=== PATIENT | male | born 1965 | race American Indian/Alaskan Native ===

== ENCOUNTER 2020-09-07 07:20 | Emergency (ER) | payer SELFPAY ==
[2020-09-07] MEDS ORDERED: ASPIRIN 325 MG TAB PO ONE (07:28)
[2020-09-07 08:09] LABS: Bilirubin,Urine NEG (Negative); Blood,Urine NEG (Negative); Color,Urine Yellow (Yellow); Mucus,Urine FEW /HPF; Protein,Urine <15 mg/dL mg/dL (Negative)
--- NOTE | 2020-09-07 08:11 | XRay Report ---
CHEST 1 VIEW INDICATION: Chest Pain. COMPARISON: None FINDINGS: SUPPORT DEVICES: None. HEART: Within normal limits. LUNGS/PLEURA: No acute air space or interstitial disease. ADDITIONAL FINDINGS: None. IMPRESSION: 1. No acute findings. Signer Name: Ziyad Vences MD Signed: 09/07/2020 8:06 AM Workstation Name: [id number]
[2020-09-07 08:15] LABS: WBC,Urine < 1.0 /HPF (0.0-6.0)
[2020-09-07 08:18] LABS: Amphetamine Screen,Urine Negative; Benzodiazepines Screen,Urine Negative; Cannabinoid Screen,Urine Negative; Cocaine Screen,Urine Negative; Methadone Screen,Urine Negative; Opiate Screen,Urine Negative
--- NOTE | 2020-09-07 08:27 | Emergency Department Report ---
ED Chest Pain HPI - General Chief Complaint: Chest Pain Stated Complaint: SHORTNESS OF BREATH/ CP Time Seen by Provider: 09/07/20 08:26 Source: patient Mode of arrival: Ambulatory Limitations: No Limitations - History of Present Illness Initial Comments: 55-year-old male complains of an area of soreness in the right upper outer quadrant of his anterior chest. He states that it has subsided. Initially he had some difficulty in breathing which he relates was secondary to augmentation of the soreness with a deep inspiration. I do not think he truly had pleuritic pain. There was no cough and no ongoing shortness of breath. Patient states that he has been concerned about blood clots for 3 to 4 weeks. He states that he had some left calf pain and had a telemedicine consult at that time. He was instructed to go to the emergency department to have it checked re: the possibility of DVT. However, he states he was "too hard headed" and never had it done. Today with the chest soreness again he was concerned about the possibility of a blood clot. Patient states that the pain is augmented by movement of his right shoulder. It has essentially resolved by the time of my encounter. He has no ongoing calf pain. He has had no actual swelling of the calf. Patient denies a history of VTE either of himself or his family. He has a history of hypertension but no known coronary artery disease. MD Complaint: chest pain -: Gradual, minutes(s) Onset: during rest Pain Location: right chest Pain Radiation: none Severity: moderate Quality: aching, other (Aching) Consistency: now resolved Improves With: nothing Worsens With: nothing Context: other re: dyspnea. denies: vomting, diaphoresis Other Symptoms: denies: cough, fever, syncope Treatments Prior to Arrival: none Aspirin use within the Past 7 Days: (0) No - Related Data Home Medications Medication Instructions Recorded Confirmed Last Taken Lipitor 40 mg PO HS 09/07/20 09/07/20 Unknown Losartan 50 mg PO DAILY 09/07/20 09/07/20 Unknown amLODIPine 10 mg PO DAILY 09/07/20 09/07/20 Unknown Allergies Allergy/AdvReac Type Severity Reaction Status Date / Time No Known Allergies Allergy Unverified 09/07/20 07:22 Heart Score - HEART Score History: Slightly suspicious EKG: Normal Age: 45-65 Risk factors: 1-2 risk factors Troponin: < normal limit HEART Score: 2 - Critical Actions Critical Actions: 0-3 pts:0.9-1.7%risk of adverse cardiac event.Candidate for discharge ED Review of Systems ROS: Stated complaint: SHORTNESS OF BREATH/ CP Other details as noted in HPI Constitutional: denies: chills, fever Eyes: denies: eye pain, eye discharge, vision change ENT: denies: ear pain, throat pain Respiratory: shortness of breath (Transient). denies: cough, wheezing Cardiovascular: chest pain. denies: palpitations Endocrine: no symptoms reported Gastrointestinal: denies: abdominal pain, nausea, diarrhea Genitourinary: denies: urgency, dysuria Musculoskeletal: denies: back pain, joint swelling, arthralgia Skin: as per HPI. denies: rash, lesions Neurological: denies: headache, weakness, paresthesias Psychiatric: denies: anxiety, depression Hematological/Lymphatic: denies: easy bleeding, easy bruising ED Past Medical Hx - Past Medical History Hx Hypertension: Yes - Surgical History Additional Surgical History: LEG - Family History Family history: other (Negative for VTE) - Social History Smoking Status: Never Smoker Substance Use Type: None - Medications Home Medications: Home Medications Medication Instructions Recorded Confirmed Last Taken Type Lipitor 40 mg PO HS 09/07/20 09/07/20 Unknown History Losartan 50 mg PO DAILY 09/07/20 09/07/20 Unknown History amLODIPine 10 mg PO DAILY 09/07/20 09/07/20 Unknown History ED Physical Exam - General Limitations: No Limitations General appearance: alert, in no apparent distress - Head Head exam: Present: atraumatic, normocephalic - Eye Eye exam: Present: normal appearance. Absent: scleral icterus - ENT ENT exam: Present: mucous membranes moist - Neck Neck exam: Present: normal inspection - Respiratory Respiratory exam: Present: normal lung sounds bilaterally, chest wall tenderness (Symptoms reproduced by pressure in the related area). Absent: respiratory distress - Cardiovascular Cardiovascular Exam: Present: regular rate, normal rhythm. Absent: systolic murmur, diastolic murmur, rubs, gallop - GI/Abdominal GI/Abdominal exam: Present: soft, normal bowel sounds. Absent: distended, tenderness, guarding, rebound - Rectal Rectal exam: Present: deferred - Extremities Exam Extremities exam: Present: normal inspection - Back Exam Back exam: Present: normal inspection - Neurological Exam Neurological exam: Present: alert, oriented X3, CN II-XII intact. Absent: motor sensory deficit - Psychiatric Psychiatric exam: Present: normal affect, normal mood - Skin Skin exam: Present: warm, dry, intact, normal color. Absent: rash ED Course Vital Signs 09/07/20 09/07/20 07:22 11:01 Temperature 98.1 F Pulse Rate 68 64 Respiratory 20 16 Rate Blood Pressure 142/91 Blood Pressure 137/86 [Left] O2 Sat by Pulse 97 95 Oximetry - Reevaluation(s) Reevaluation #1: Patient's cardiac biomarkers are negative. His EKG shows no evidence of acute ischemia. He has poor R wave progression. His D-dimer is less than 135. He has been asymptomatic during his emergency department stay. Thus, I think the patient is appropriate for outpatient follow-up and further evaluation. He will be referred to primary care and a subassembler. 09/07/20 11:16 YU score - Yu Score Age > 65: (0) No Aspirin use within the Past 7 Days: (0) No 3 or more CAD Risk Factors: (0) No 2 or more Angina events in past 24 hrs: (0) No Known CAD with more than 50% Stenosis: (0) No Elevated Cardiac Markers: (0) No ST Deviation Greater than 0.5mm: (0) No YU Score: 0 ED Medical Decision Making - Lab Data Result diagrams: 09/07/20 08:01 09/07/20 08:01 Laboratory Results - last 24 hr 09/07/20 09/07/20 Unknown Unknown Urine Color Yellow Urine Turbidity Clear Urine pH 6.0 Ur Specific [place] 1.017 Urine Protein <15 mg/dl Urine Glucose (UA) Neg Urine Ketones Neg Urine Blood Neg Urine Nitrite Neg Urine Bilirubin Neg Urine Urobilinogen 2.0 Ur Leukocyte Esterase Neg Urine WBC (Auto) < 1.0 Urine RBC (Auto) 3.0 Urine Mucus Few Urine Opiates Screen Negative Urine Methadone Screen Negative Ur Barbiturates Screen Negative Ur Phencyclidine Scrn Negative Ur Amphetamines Screen Negative U Benzodiazepines Scrn Negative Urine Cocaine Screen Negative U Marijuana (THC) Screen Negative Drugs of Abuse Note Disclamer - EKG Data -: EKG Interpreted by Me EKG shows normal: sinus rhythm, axis, intervals, ST-T waves Rate: normal - EKG Data Interpretation: other (Poor R wave progression, loss of anterior forces) - Radiology Data Radiology results: report reviewed (No acute process), image reviewed Critical care attestation.: If time is entered above; I have spent that time in minutes in the direct care of this critically ill patient, excluding procedure time. ED Disposition Clinical Impression: Musculoskeletal chest pain Disposition: - TO HOME OR SELFCARE Is pt being admited?: No Does the pt Need Aspirin: No Condition: Stable Instructions: Chest Pain (ED), Chest Wall Pain, [id number] Additional Instructions: I would recommend the baby aspirin once a day. I am going to refer you to a subassembler for further evaluation. I am also going to refer you to a primary care physician. Return to the emergency department any recurrent shortness of breath or significant chest pain. Referrals: PRIMARY CARE, [Primary Care Provider] - 3-5 Days TELMA COBB MD [Staff Physician] - 3-5 Days FÉLIX BEAL MD [Staff Physician] - 2-3 Days Time of Disposition: 11:18
[2020-09-07 08:31] LABS: Basophils # (Auto) 0.1 K/mm3 (0.0-0.1); Basophils % (Auto) 0.5 % (0.0-1.8); Eosinophils # (Auto) 0.1 K/mm3 (0.0-0.4); Eosinophils % (Auto) 1.2 % (0.0-4.3); Hematocrit 42.8 % (35.5-45.6); Lymphocytes # (Auto) 1.9 K/mm3 (1.2-5.4); Lymphocytes % (Auto) 18.8 % (13.4-35.0); Mean Corpuscular HGB Conc 35 % (32-34); Mean Corpuscular Volume 95 fl (84-94); Monocytes # (Auto) 0.8 K/mm3 (0.0-0.8); Monocytes % (Auto) 7.4 % (0.0-7.3); Platelet Count 285 K/mm3 (140-440); Red Blood Count 4.49 M/mm3 (3.65-5.03); Red Cell Distribution Width 12.6 % (13.2-15.2)
[2020-09-07 09:00] LABS: Alanine Aminotransferase 27 units/L (7-56); BUN/Creatinine Ratio 16; Blood Urea Nitrogen 18 mg/dL (9-20); Calcium 9.2 mg/dL (8.4-10.2); Hemolysis Index 29
[2020-09-07 10:31] LABS: INR 1.02 (0.87-1.13)
[2020-09-07 10:32] LABS: Partial Thromboplastin Time 29.4 Sec. (24.2-36.6)
[2020-09-07 11:02] VITALS: BP 137/86
== END 2020-09-07 11:34 | disposition home or self-care (01) ==
LOC: ED 07:20
DX: R07.89 Other chest pain (principal); I10 Essential (primary) hypertension; Z79.899 Other long term (current) drug therapy
CPT/HCPCS: 36415; 71045; 80053; 80307; 81001; 83690; 83880; 84484; 85025; 85379; 85610; 85730; 93005

== ENCOUNTER 2021-01-24 10:17 | Emergency (ER) | payer OTHER ==
[2021-01-24] MEDS ORDERED: KETOROLAC 60 MG/2 ML INJ IM ONE (11:16)
[2021-01-24] MEDS ORDERED: CYCLOBENZAPRINE 10 MG TAB PO ONE (11:16)
--- NOTE | 2021-01-24 11:35 | XRay Report ---
LUMBAR SPINE 3 VIEWS INDICATION / CLINICAL INFORMATION: lifting and felt a pop, low back pain. COMPARISON: None available. FINDINGS: VERTEBRAE: No acute fracture. No significant malalignment. DISC SPACES / FACET JOINTS:No significant abnormality. PARASPINAL SOFT TISSUES:No significant abnormality. ADDITIONAL FINDINGS: None. Signer Name: Matthew Garcia DO Signed: 01/24/2021 11:31 AM Workstation Name: [id number]
--- NOTE | 2021-01-24 11:41 | Emergency Department Report ---
ED Back Pain/Injury HPI - General Chief Complaint: Back Pain/Injury Stated Complaint: CHEST PAINS Time Seen by Provider: 01/24/21 11:01 Source: patient Limitations: No Limitations - History of Present Illness Initial Comments: Patient is a 55-year-old male presents emergency room complaints of low back pain that began 5 days ago. He states he was moving a refrigerator with a tomi and that it fell back onto him when he felt a popping sensation in his lower back. He denies falling to the ground or being pinned by the refrigerator. He has been ambulatory but states that he has pain whenever he first starts to get up. He denies any numbness, weakness, bowel or bladder incontinence, any other injury. He denies ever injuring his back in the past. Past medical history of hypertension. No allergies to medications. - Related Data Home Medications Medication Instructions Recorded Confirmed Last Taken Lipitor 40 mg PO HS 09/07/20 09/07/20 Unknown Losartan 50 mg PO DAILY 09/07/20 09/07/20 Unknown amLODIPine 10 mg PO DAILY 09/07/20 09/07/20 Unknown Previous Rx's Medication Instructions Recorded Last Taken Type Naproxen [EC-Naprosyn] 500 mg PO BID PRN #20 tablet. 01/24/21 Unknown Rx methOCARBAMOL [Robaxin TAB] 500 mg PO BID PRN #20 tab 01/24/21 Unknown Rx Allergies Allergy/AdvReac Type Severity Reaction Status Date / Time No Known Allergies Allergy Unverified 09/07/20 07:22 ED Review of Systems ROS: Stated complaint: CHEST PAINS Other details as noted in HPI Comment: All other systems reviewed and negative ED Past Medical Hx - Past Medical History Previous Medical History?: Yes Hx Hypertension: Yes - Surgical History Past Surgical History?: Yes Additional Surgical History: LEG - Social History Smoking Status: Never Smoker Substance Use Type: None - Medications Home Medications: Home Medications Medication Instructions Recorded Confirmed Last Taken Type Lipitor 40 mg PO HS 09/07/20 09/07/20 Unknown History Losartan 50 mg PO DAILY 09/07/20 09/07/20 Unknown History amLODIPine 10 mg PO DAILY 09/07/20 09/07/20 Unknown History Naproxen [EC-Naprosyn] 500 mg PO BID PRN #20 tablet. 01/24/21 Unknown Rx methOCARBAMOL [Robaxin TAB] 500 mg PO BID PRN #20 tab 01/24/21 Unknown Rx ED Physical Exam - General Limitations: No Limitations General appearance: alert, in no apparent distress - Head Head exam: Present: atraumatic, normocephalic - Eye Eye exam: Present: normal appearance - ENT ENT exam: Present: mucous membranes moist - Neck Neck exam: Present: normal inspection, full ROM. Absent: tenderness, meningismus - Respiratory Respiratory exam: Present: normal lung sounds bilaterally. Absent: respiratory distress, wheezes, rales, rhonchi, stridor, chest wall tenderness, accessory muscle use, decreased breath sounds, prolonged expiratory - Cardiovascular Cardiovascular Exam: Present: regular rate, normal rhythm, normal heart sounds. Absent: systolic murmur, diastolic murmur, rubs, gallop - Back Exam Back exam: Present: normal inspection, full ROM, paraspinal tenderness (bilateral lumbar paraspinal ttp), vertebral tenderness (mild midline lumbar ttp, no step offs, no deformities ) - Neurological Exam Neurological exam: Present: alert, oriented X3, CN II-XII intact, normal gait. Absent: motor sensory deficit - Psychiatric Psychiatric exam: Present: normal affect, normal mood - Skin Skin exam: Present: warm, dry, intact ED Course Vital Signs 01/24/21 01/24/21 10:29 12:00 Temperature 98.7 F Pulse Rate 71 58 L Respiratory 18 16 Rate Blood Pressure 143/98 143/86 [Right] O2 Sat by Pulse 97 99 Oximetry ED Medical Decision Making - Radiology Data Radiology results: report reviewed Ordering Physician: OMER CALDERON Date of Service: 01/24/21 Procedure(s): XR spine lumbosacral 2-3V Accession Number(s): [id number] cc: OMER CALDERON Fluoro Time In Minutes: LUMBAR SPINE 3 VIEWS INDICATION / CLINICAL INFORMATION: lifting and felt a pop, low back pain. COMPARISON: None available. FINDINGS: VERTEBRAE: No acute fracture. No significant malalignment. DISC SPACES / FACET JOINTS:No significant abnormality. PARASPINAL SOFT TISSUES:No significant abnormality. ADDITIONAL FINDINGS: None. Signer Name: Matthew Garcia DO Signed: 01/24/2021 11:31 AM Workstation Name: [id number] Transcribed By: DAMIÁN Dictated By: MATTHEW GARCIA DO Electronically Authenticated By: MATTHEW GARCIA DO Signed Date/Time: 01/24/21 113 DD/ 1130 TD/TT: Print - Medical Decision Making Patient is a 55-year-old male presents emergency room complaints of low back pain that began 5 days ago. He states he was moving a refrigerator with a tomi and that it fell back onto him when he felt a popping sensation in his lower ba ck. He denies falling to the ground or being pinned by the refrigerator. He has been ambulatory but states that he has pain whenever he first starts to get up. He denies any numbness, weakness, bowel or bladder incontinence, any other injury. He denies ever injuring his back in the past. Past medical history of hypertension. No allergies to medications. Vitals are stable. On exam: Bilateral lumbar paraspinal tenderness to palpation, mild midline lumbar ttp, no step offs, no deformities, no focal neuro deficits. X-ray lumbar spine: VERTEBRAE: No acute fracture. No significant malalignment. DISC SPACES / FACET JOINTS:No significant abnormality. PARASPINAL SOFT TISSUES:No significant abnormality. ADDITIONAL FINDINGS: None. Patient given medications in the emergency department as he did not drive. Discussed all results with patient and answered questions. Patient symptoms improved. Patient given prescription for medications. Symptoms and examination most consistent with lumbar strain. He has no focal neuro deficits, he is ambulatory, no saddle numbness, no step offs, no deformities. Advised patient Please take medication as prescribed as needed. May use ice pack, heating pad, rest, epsom salt bath. Follow-up with your primary care doctor for reexamination. Return to emergency room for any new or worse symptoms. Critical care attestation.: If time is entered above; I have spent that time in minutes in the direct care of this critically ill patient, excluding procedure time. ED Disposition Clinical Impression: Low back pain Qualifiers: Chronicity: acute Back pain laterality: bilateral Sciatica presence: without sc iatica Qualified Code(s): M54.5 - Low back pain Disposition: -01 TO HOME OR SELFCARE Is pt being admited?: No Does the pt Need Aspirin: No Condition: Stable Instructions: Lumbar Strain Additional Instructions: Please take medication as prescribed as needed. May use ice pack, heating pad, rest, epsom salt bath. Follow-up with your primary care doctor for reexamination. Return to emergency room for any new or worse symptoms. Prescriptions: Naproxen [EC-Naprosyn] 500 mg PO BID PRN #20 tablet. PRN Reason: pain methOCARBAMOL [Robaxin TAB] 500 mg PO BID PRN #20 tab PRN Reason: muscle spasm/pain Referrals: PRIMARY CARE, [Primary Care Provider] - 2-3 Days Time of Disposition: 11:40 Print Language: PASHTO
[2021-01-24 12:00] VITALS: BP 143/86
== END 2021-01-24 12:00 | disposition home or self-care (01) ==
LOC: ED 10:17
DX: M54.5 Low back pain (principal); I10 Essential (primary) hypertension; Z98.890 Other specified postprocedural states
CPT/HCPCS: 72100; 96372; 99283; J1885